=== PATIENT | male | born 1975 | race Caucasian/White ===

== ENCOUNTER 2017-12-14 08:39 | Emergency (ER) | payer BC ==
[~2017-12-14] VITALS: Ht 167.6 cm; Wt 74.8 kg
[~2017-12-14 08:39] MED LIST: AMOX500C2 PO; ASPI-999 PO; METO-451 PO
--- OUTSIDE RECORDS SUMMARY | 2017-12-14 08:44 | XMS REPORT | Continuity of Care Document ---
Author Author [facility] Organization [facility] Address Unknown Phone Unavailable Allergies Active Description Code Type Severity Reaction Onset Reported/Identified Relationship to Patient Clinical Status Yes No Known Drug Allergies [id number] Drug Allergy Unknown N/A 10/03/2015 Medications There is no data. Problems Date Dx Coded Attending Type Code Diagnosis Diagnosed By 10/04/2015 ILIA ARMIJO DO Ot I71.4 ABDOMINAL AORTIC ANEURYSM, WITHOUT RUPTU 10/15/2015 ELAN ARGUETA, ROMERO Hutchinson Ot D72.829 10/15/2015 ELAN ARGUETA, ROMERO A Ot I71.4 10/15/2015 ELAN ARGUETA, ROMERO A Ot D72.829 10/15/2015 ELAN ARGUETA, ROMERO A Ot I71.4 10/16/2015 ELAN ARGUETA, ROMERO A Ot D72.829 10/16/2015 ELAN ARGUETA, ROMERO A Ot I71.4 10/16/2015 ELAN ARGUETA, ROMERO A Ot D72.829 10/16/2015 ELAN ARGUETA, ROMERO A Ot I71.4 10/17/2015 ELAN ARGUETA, ROMERO A Ot D72.829 10/17/2015 ELAN ARGUETA, ROMERO A Ot I71.4 10/18/2015 ELAN ARGUETA, ROMERO A Ot D72.829 10/18/2015 ELAN ARGUETA, ROMERO A Ot I71.4 10/18/2015 ELAN ARGUETA, ROMERO A Ot D72.829 10/18/2015 ELAN ARGUETA, ROMERO A Ot I71.4 10/19/2015 ELAN ARGUETA, ROMERO A Ot D72.829 10/19/2015 ELAN ARGUETA, ROMERO A Ot I71.4 10/19/2015 ELAN ARGUETA, ROMERO A Ot D72.829 10/19/2015 ELAN ARGUETA, ROMERO A Ot I71.4 10/20/2015 ELAN ARGUETA, ROMERO A Ot D72.829 10/20/2015 ELAN ARGUETA, ROMERO A Ot I71.4 10/21/2015 ELAN ARGUETA, ROMERO A Ot D72.829 10/21/2015 ELAN ARGUETA, ROMERO A Ot I71.4 10/22/2015 ELAN ARGUETA, ROMERO A Ot D72.829 10/22/2015 ELAN ARGUETA, ROMERO A Ot I71.4 10/23/2015 ELAN AGRUETA, ROMERO A Ot D72.829 10/23/2015 ELAN ARGUETA, ROMERO A Ot I71.4 10/23/2015 ELAN ARGUETA, ROMERO A Ot D72.829 10/23/2015 ELAN ARGUETA, ROMERO A Ot I71.4 10/24/2015 ELAN ARGUETA, ROMERO A Ot D72.829 10/24/2015 ELAN ARGUETA, ROMERO A Ot I71.4 10/25/2015 ELAN ARGUETA, ROMERO A Ot D72.829 10/25/2015 ELAN ARGUETA, ROMERO A Ot I71.4 10/25/2015 ELAN ARGUETA, ROMERO A Ot D72.829 10/25/2015 ELAN ARGUETA, ROMERO A Ot I71.4 10/26/2015 ELAN ARGUETA, ROMERO A Ot D72.829 10/26/2015 ELAN ARGUETA, ROMERO A Ot I71.4 10/26/2015 ELAN ARGUETA, ROMERO A Ot D72.829 10/26/2015 ELAN ARGUETA, ROMERO A Ot I71.4 10/27/2015 ELAN ARGUETA, ROMERO A Ot D72.829 10/27/2015 ELAN ARGUETA, ROMERO A Ot I71.4 10/27/2015 ELAN ARGUETA, ROMERO A Ot D72.829 10/27/2015 ELAN ARGUETA, ROMERO A Ot I71.4 10/28/2015 ELAN ARGUETA, ROMERO A Ot D72.829 10/28/2015 ELAN ARGUETA, ROMERO A Ot I71.4 10/29/2015 ELAN ARGUETA, ROMERO A Ot D72.829 10/29/2015 ELAN ARGUETA, ROMERO A Ot I71.4 10/29/2015 ELAN ARGUETA, ROMERO A Ot D72.829 10/29/2015 ELAN ARGUETA, ROMERO A Ot I71.4 10/29/2015 ELAN ARGUETA, ROMERO A Ot D72.829 10/29/2015 ELAN ARGUETA, ROMERO A Ot I71.4 10/30/2015 ELAN ARGUETA, ROMERO A Ot D72.829 10/30/2015 ELAN ARGUETA, ROMERO A Ot I71.4 10/30/2015 ELAN ARGUETA, ROMERO A Ot D72.829 10/30/2015 ELAN ARGUETA, ROMERO A Ot I71.4 10/31/2015 ELAN ARGUETA, ROMERO A Ot D72.829 10/31/2015 ELAN ARGUETA, ROMERO A Ot I71.4 11/01/2015 ELAN ARGUETA, ROMERO A Ot D72.829 11/01/2015 ELAN ARGUETA, ROMERO A Ot I71.4 11/02/2015 ELAN ARGUETA, ROMERO A Ot D72.829 11/02/2015 ELAN ARGUETA, ROMERO A Ot I71.4 11/03/2015 ELAN ARGUETA, ROMERO A Ot D72.829 11/03/2015 ELAN ARGUETA, ROMERO A Ot I71.4 11/03/2015 ELAN ARGUETA, ROMERO A Ot D72.829 11/03/2015 ELAN ARGUETA, ROMERO A Ot I71.4 11/04/2015 ELAN ARGUETA, ROMERO A Ot D72.829 11/04/2015 ELAN ARGUETA, ROMERO A Ot I71.4 11/05/2015 ELAN ARGUETA, ROMERO A Ot D72.829 11/05/2015 ELAN ARGUETA, ROMERO A Ot I71.4 11/07/2015 ELAN ARGUETA, ROMERO A Ot D72.829 11/07/2015 ELAN ARGUETA, ROMERO A Ot I71.4 11/07/2015 ELAN ARGUETA, ROMERO A Ot D72.829 11/07/2015 ELAN ARGUETA, ROMERO A Ot I71.4 11/08/2015 ELAN ARGUETA, ROMERO A Ot D72.829 11/08/2015 ELAN ARGUETA, ROMERO A Ot I71.4 11/09/2015 ELAN ARGUETA, ROMERO A Ot D72.829 11/09/2015 ELAN ARGUETA, ROMERO A Ot I71.4 11/09/2015 ELAN ARGUETA, ROMERO A Ot D72.829 11/09/2015 ELAN ARGUETA, ROMERO A Ot I71.4 11/10/2015 ELAN ARGUETA, ROMERO A Ot D72.829 11/10/2015 ELAN ARGUETA, ROMERO A Ot I71.4 11/11/2015 ELAN ARGUETA, ROMERO A Ot D72.829 11/11/2015 ELAN ARGUETA, ROMERO A Ot I71.4 11/11/2015 ELAN ARGUETA, ROMERO A Ot D72.829 11/11/2015 ELAN ARGUETA, ROMERO A Ot I71.4 11/12/2015 ELAN ARGUETA, ROMERO A Ot D72.829 11/12/2015 ELAN ARGUETA, ROMERO A Ot I71.4 11/13/2015 ELAN ARGUETA, ROMERO A Ot D72.829 11/13/2015 ELAN ARGUETA, ROMERO A Ot I71.4 11/15/2015 ELAN ARGUETA, ROMERO A Ot D72.829 11/15/2015 ELAN ARGUETA, ROMERO A Ot I71.4 11/16/2015 ELAN ARGUETA, ROMERO A Ot D72.829 11/16/2015 ELAN ARGUETA, ROMERO A Ot I71.4 11/17/2015 ELAN ARGUETA, ROMERO A Ot D72.829 11/17/2015 ELAN ARGUETA, ROMERO A Ot I71.4 11/18/2015 ELAN ARGUETA, ROMERO A Ot D72.829 11/18/2015 ELAN ARGUETA, ROMERO A Ot I71.4 11/18/2015 ELAN ARGUETA, ROMERO A Ot D72.829 11/18/2015 ELAN ARGUETA, ROMERO A Ot I71.4 11/20/2015 ELAN ARGUETA, ROMERO A Ot D72.829 11/20/2015 ELAN ARGUETA, ROMERO A Ot I71.4 11/21/2015 ELAN ARGUETA, ROMERO A Ot D72.829 11/21/2015 ELAN ARGUETA, ROMERO A Ot I71.4 11/22/2015 ELAN ARGUETA, ROMERO A Ot D72.829 11/22/2015 ELAN ARGUETA, ROMERO A Ot I71.4 11/22/2015 ELAN ARGUETA, ROMERO A Ot D72.829 11/22/2015 ELAN ARGUETA, ROMERO A Ot I71.4 11/23/2015 ELAN ARGUETA, ROMERO A Ot D72.829 11/23/2015 ELAN ARGUETA, ROMERO A Ot I71.4 11/24/2015 ELAN ARGUETA, ROMERO A Ot D72.829 11/24/2015 ELAN ARGUETA, ROMERO A Ot I71.4 11/24/2015 ELAN ARGUETA, ROMERO A Ot D72.829 11/24/2015 ELAN ARGUETA, ROMERO A Ot I71.4 11/25/2015 ELAN ARGUETA, ROMERO A Ot D72.829 11/25/2015 ELAN ARGUETA, ROMERO A Ot I71.4 11/25/2015 ELAN ARGUETA, ROMERO A Ot D72.829 ELEVATED WHITE BLOOD CELL COUNT, UNSPECI 11/25/2015 ELAN ARGUETA, ROMERO A Ot I71.4 ABDOMINAL AORTIC ANEURYSM, WITHOUT RUPTU 01/04/2016 CORINNE AYON MD Ot F17.210 NICOTINE DEPENDENCE, CIGARETTES, UNCOMPL 01/04/2016 CORINNE AYON MD Ot R50.9 FEVER, UNSPECIFIED 01/04/2016 CORINNE AYON MD Ot Z98.89 OTHER SPECIFIED POSTPROCEDURAL STATES Procedures There is no data. Results There is no data. Encounters ACCT No. Visit Date/Time Discharge Status Pt. Type Provider Facility Loc./Unit Complaint [id number] 01/04/2016 09:34:00 01/04/2016 13:24:00 DIS Emergency CORINNE AYON MD [facility] ER FEVER [id number] 11/25/2015 08:10:00 11/25/2015 09:13:00 DIS Outpatient ROMERO ANSARI MD [facility] ANEURYSM OF INFRARENAL ABD AORTA,LEUKOCYTOSIS [id number] 10/03/2015 22:41:00 10/04/2015 04:13:00 DIS Emergency ILIA ARMIJO DO [facility] ER LOWER ABD/BACK PAIN
--- OUTSIDE RECORDS SUMMARY | 2017-12-14 08:44 | XMS REPORT ---
Author Author DESTIN THOMPSON [facility] Address [address] [place] [address] Care Team Providers Care Terrazzo Worker Name Role Phone DESTIN THOMPSON Unavailable PROBLEMS Type Condition ICD9-CM Code [id number] Code Onset Dates Condition Status SNOMED Code Problem Dysthymia F34.1 Active [id number] ALLERGIES No Information SOCIAL HISTORY Never Assessed PLAN OF CARE Activity Details Follow Up 2 Weeks Reason:Depression VITAL SIGNS MEDICATIONS Unknown Medications RESULTS No Results PROCEDURES Procedure Date Ordered Result Body Site Psychotherapy, patient &/family, 30 minutes, established patient Dec 09, 2016 IMMUNIZATIONS No Known Immunizations
--- OUTSIDE RECORDS SUMMARY | 2017-12-14 08:44 | XMS REPORT | Clinical Summary ---
Author Author [facility] Organization [facility] Address Unknown Phone Unavailable Care Team Providers Care It Network Engineer Name Role Phone Bernadette Jackson MD PCP Roe Valdivia MD Unavailable Sarah Schmid DO Unavailable Garrett Horn MD Unavailable Clyde Parr MD Unavailable Source Comments Some departments are not documenting in the electronic medical record. If you do not see the information that you expected, contact Release of Information in the Health Information Management department at [phone] for further assistance in locating additional records.[facility] Allergies No Known Allergies Current Medications Prescription Sig. Disp. Refills Start End Date Status Date aspirin EC 81 mg tablet Take 1 Tab by mouth 90 Tab 3 10/14/20 Active daily. 15 metoprolol (LOPRESSOR) 25 Take 25 mg by mouth Active mg tablet daily. 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 12/21/2015 Leukocytosis 10/05/2015 Aneurysm of infrarenal abdominal aorta (HCC) 10/04/2015 Social History Tobacco Use Types Packs/Day Years Used Date Current Every Day Smoker Cigarettes 0.25 Smokeless Tobacco: Never Used Tobacco Cessation: Ready to Quit: No; Counseling Given: Yes Alcohol Use Drinks/Week oz/Week Comments Yes 0 Standard 0.0 rare drinks or equivalent Sex Assigned at Date Recorded Not on file Last Filed Vital Signs Vital Sign Reading Time Taken Blood Pressure 127/82 10/13/2016 10:58 AM BENEFITS COORDINATOR Pulse 75 10/13/2016 10:58 AM BENEFITS COORDINATOR Temperature 36.8 C (98.3 F) 10/13/2016 10:58 AM BENEFITS COORDINATOR Respiratory Rate 14 10/13/2016 10:58 AM BENEFITS COORDINATOR Oxygen Saturation 100% 03/22/2016 4:11 PM CDT Inhaled Oxygen - - Concentration Weight 72.8 kg (160 lb 6.4 oz) 10/13/2016 10:58 AM BENEFITS COORDINATOR Height 167.6 cm (5' 6") 10/13/2016 10:58 AM BENEFITS COORDINATOR Body Mass Index 25.89 10/13/2016 10:58 AM BENEFITS COORDINATOR Plan of Treatment Health Maintenance Due Date Last Done Comments PHYSICAL (COMPREHENSIVE) 01/09/1983 EXAM PERTUSSIS VACCINE 01/09/1987 TETANUS VACCINE 01/09/1993 INFLUENZA VACCINE 05/17/2017 Results Not on filefrom Last 3 Months
[2017-12-14] MEDS ORDERED: HYDROcodone/APAP 5 MG/325 MG (LORTAB) TAB PO STA (09:40)
[2017-12-14] MEDS ORDERED: DEXAMETHASONE 10 MG/ML (DECADRON) 1 ML VIAL IM ONE (09:45)
--- NOTE | 2017-12-14 10:09 | ED EENT ---
History of Present Illness General Chief Complaint: Nasal Problems Stated Complaint: POSS ALLERGIC REACTION Nursing Triage Note: PT CO OF GARCIA, NASAL STUFFINESS, STATES USED AFRIN NASAL SPRAY AND SX HAD GOTTEN ALOT WORSE AFTER USING NASAL SPRAY. PT HAS GARCIA STATES SINUS ARE FULL HAS HX OF HEART SURG AND IS TAKING AMOXICILLIN PROPHYLACTICLY. Source: patient Exam Limitations: no limitations History of Present Illness Date Seen by Provider: Dec 14, 2017 Time Seen by Provider: 09:30 Initial Comments Here with complaint of nasal congestion for the last 3 days. He tried Afrin nasal spray this morning and had significant increase in pain and headache. Still very fall on the sinuses. Does have history of aortic dissection and has open prescription for amoxicillin for whenever he has problems. He has taken that over the last 24 hours. 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 Denies nausea, vomiting or breathing problems. Does have a sore throat and moderate runny nose with sinus pressure and congestion. Denies fevers currently. Timing/Duration: gradual Severity: moderate Location: nose, throat, facial Prearrival Treatment: over the counter meds Associated Symptoms: No cough, facial pain/swelling, No fever, nasal congestion /drainage, sinus infection, sore throat Allergies and Home Medications Allergies Coded Allergies: No Known Drug Allergies (Unverified , 10/03/15) Home Medications Metoprolol Tartrate 50 Mg Tablet, 25 MG PO BID, (Reported) Review of Systems Constitutional: see HPI, No chills, No fever Eyes: No Symptoms Reported Ears: No Symptoms Reported Nose: see HPI Mouth: no symptoms reported Throat: see HPI Respiratory: No cough, No short of breath Cardiovascular: no symptoms reported Gastrointestinal: no symptoms reported, No abdominal pain, No nausea, No vomiting Musculoskeletal: no symptoms reported Past Taqswqg-Ywkmnw-Eahagx Hx Patient Social History Alcohol Use: Denies Use Recreational Drug Use: No Smoking Status: Current Everyday Smoker Type Used: Cigarettes Recent Foreign Travel: No Contact w/Someone Who Travel: No Recent Infectious Disease Expo: No Recent Hopitalizations: No Physical Abuse: No Sexual Abuse: No Immunizations Up To Date Tetanus Booster (TDap): Unknown Surgeries History of Surgeries: No (PART OF AORTA REMOVED DUE TO INFECTION. ) Surgeries: Abdominal Respiratory History of Respiratory Disorde: No Cardiovascular History of Cardiac Disorders: No Neurological History of Neurological Disord: No Reproductive System Hx Reproductive Disorders: No Sexually Transmitted Disease: No HIV/AIDS: No Gastrointestinal History of Gastrointestinal Di: No Musculoskeletal History of Musculoskeletal Dis: No Endocrine History of Endocrine Disorders: No Cancer History of Cancer: No Psychosocial History of Psychiatric Problem: No Suicide Risk Score: 0 Integumentary History of Skin or Integumenta: No Blood Transfusions History of Blood Disorders: No Adverse Reaction to a Blood Tr: No Reviewed Nursing Assessment Reviewed/Agree w Nursing PMH: Yes Family Medical History Significant Family History: No Pertinent Family Hx Physical Exam Vital Signs Vital Signs - First Documented 12/14/17 08:50 Temp 97.8 Pulse 90 Resp 18 B/P (MAP) 164/134 (144) Pulse Ox 99 General Appearance: WD/WN, no apparent distress Eyes: bilateral eye normal inspection, bilateral eye PERRL, bilateral eye EOMI Ears: bilateral ear auricle normal, bilateral ear canal normal, bilateral ear TM normal Nose: other (moderate congestion with moderate erythema and clear rhinorrhea) Mouth/Throat: pharynx swelling, pharynx tenderness, other (moderate pharyngeal erythema) Neck: full range of motion, supple Cardiovascular: regular rate, rhythm, no murmur Respiratory: lungs clear, normal breath sounds Gastrointestinal: non tender, soft Neurologic/Psychiatric: alert, oriented x 3 Skin: warm/dry, other (somewhat red and puffy on the face with pressure/ fullness feeling with palpation.) Progress/Results/Core Measures Results/Orders My Orders Orders - MAYTE JORDAN MD Hydrocodone/Apap 5/325 Tablet (Lortab 5 (12/14/17 09:40) Dexamethasone Injection (Decadron Inject (12/14/17 09:45) Medications Given in ED Current Medications Medications Dose Ordered Sig/Rashel Route Start Time Stop Time Status Last Admin Dose Admin Dexamethasone Sodium Phosphate 10 mg ONCE ONCE IM 12/14/17 09:45 12/14/17 09:46 DC 12/14/17 09:51 10 MG Vital Signs/I&O Vital Sign - Last 12Hours 12/14/17 08:50 Temp 97.8 Pulse 90 Resp 18 B/P (MAP) 164/134 (144) Pulse Ox 99 Blood Pressure Mean: 144 Progress Note : Progress Note Seen and evaluated. Decadron 10 mg IM. Hydrocodone 5/325 2 tabs by mouth given. We will increase her antibiotic outpatient to Augmentin twice a day given concerns for sinus infection. Discharged home with return precautions. Patient and family verbalize understanding instructions and agreement with plan. Departure Impression Impression: Primary Impression: Sinusitis Qualified Codes: J01.10 - Acute frontal sinusitis, unspecified Disposition: HOME, SELF-CARE Condition: Stable Departure-Patient Inst. Decision time for Depature: 10:08 Referrals: ROMERO ANSARI MD (PCP/Family) Primary Care Physician Patient Instructions: Headache, Adult (DC), Sinusitis, Adult (DC) Add. Discharge Instructions: All discharge instructions reviewed with patient and/or family. Voiced understanding. Take medications as directed. You may take Tylenol 1000 mg every 6 hours as needed for pain. You may use the nasal irrigation. You may also use the nasal saline with menthol (four-way brand for similar) as needed. Follow-up with your Dr. in a few days for recheck. Return for worse pain, fever, vomiting, weakness, breathing problems or other concerns as needed. Scripts Amoxicillin/Potassium Clav (Augmentin 875-125 Tablet) 1 Each Tablet 1 EACH PO BID, #20 TAB 0 Refills Prov: MAYTE JORDAN MD 12/14/17 MAYTE JORDAN MD Dec 14, 2017 10:09
[2017-12-14 10:10] VITALS: BP 186/112
[2017-12-14] MEDS ORDERED: AMOX-358 PO (10:10)
== END 2017-12-14 10:17 | disposition home or self-care (01) ==
LOC: EDUNIT# 08:39 → ER 08:40
DX: J32.9 Chronic sinusitis, unspecified (principal); F17.210 Nicotine dependence, cigarettes, uncomplicated; Z98.890 Other specified postprocedural states
CPT/HCPCS: 96372; 99284

== ENCOUNTER → 2019-09-07 | Outpatient (CLI) | payer BC ==
[~2019-09-07] MED LIST changes: +AMOX-358 PO
--- NOTE | 2019-09-07 12:46 | Diagnostic Imaging Report ---
INDICATION: Fall with left shoulder injury. TIME OF EXAM: 11:36 AM 3 views left shoulder were obtained. Glenohumeral and acromioclavicular alignment are normal. Acromiohumeral space is normal. No fracture or dislocation is seen. IMPRESSION: No acute bony abnormality is detected. Dictated by: Dictated on workstation # [id number]
== END ==
LOC: RAD 11:07
PROVIDERS: ATTEND Nurse Practitioner Family
DX: S49.92XA Unspecified injury of left shoulder and upper arm, initial encounter (principal); W19.XXXA Unspecified fall, initial encounter
CPT/HCPCS: 73030

== ENCOUNTER → 2019-09-21 | Outpatient (CLI) | payer BC ==
--- NOTE | 2019-09-21 11:06 | Diagnostic Imaging Report ---
EXAMINATION: MRI of the left upper extremity without contrast, 09/21/2019. TECHNIQUE: Multiplanar, multisequence non contrast-enhanced MRI of the left upper extremity was accomplished. INDICATION: Fell on a slip and slide. Injury to the shoulder, continued pain. FINDINGS: The subscapularis tendon is intact. The long head of the biceps tendon is intact as well and lies within the bicipital groove. The infraspinatus tendon is intact. The supraspinatus tendon contains linear T2 hyperintensity at the footprint consistent with a partial-thickness intrasubstance tear. No full-thickness tear or retraction is appreciated. There is minimal fluid in the subdeltoid-subacromial bursa. The visualized axilla is unremarkable. The muscle volume is preserved. The osseous structures demonstrate no acute abnormalities. Minimal spurring noted at the acromioclavicular joint. The labrum is not well evaluated without contrast. No gross abnormality appreciated. IMPRESSION: 1. Fairly extensive but predominantly intrasubstance tear involving the supraspinatus tendon at the footprint. Infraspinatus and subscapularis tendons intact. 2. Remaining visualized structures also intact. Dictated by: Dictated on workstation # [id number]
== END ==
LOC: RAD 09:53
PROVIDERS: ATTEND Nurse Practitioner Family
DX: M75.102 Unspecified rotator cuff tear or rupture of left shoulder, not specified as traumatic (principal)
CPT/HCPCS: 73221

== ENCOUNTER 2021-04-19 14:34 | Emergency (ER) | payer BC ==
[~2021-04-19] VITALS: Ht 167 cm; Wt 72.5 kg
[2021-04-19] MEDS ORDERED: NS IV 1000 ML 1,000 ML IV SCH (15:00)
[2021-04-19] MEDS ORDERED: HOLD METFORMIN - RECEIVED CONTRAST 20 ML VIAL IV SCH ×2 (15:15)
[2021-04-19] MEDS ORDERED: IOHEXOL 350 MG/ML 100 ML (OMNIPAQUE 350) VIAL IV ONE ×2 (15:15)
[2021-04-19] MEDS ORDERED: NS 100 ML (IVPB) BAG IV ONE ×2 (15:15)
[2021-04-19 15:17] LABS: BASOPHILS % (AUTO) 0 % (0-10); EOSINOPHILS % (AUTO) 0 % (0-10); HEMATOCRIT 45 % (40-54); HEMOGLOBIN 15.3 g/dL (13.3-17.7); LYMPHOCYTES # (AUTO) 1.7 X 10^3 (1.0-4.0); LYMPHOCYTES % (AUTO) 13 % (12-44); MEAN CORPUSCULAR HEMOGLOBIN 33 pg (25-34); MEAN CORPUSCULAR HGB CONC 34 g/dL (32-36); MEAN CORPUSCULAR VOLUME 95 fL (80-99); MEAN PLATELET VOLUME 8.5 fL (9.0-12.2); MONOCYTES % (AUTO) 8 % (0-12); NEUTROPHILS # (AUTO) 9.8 X 10^3 (1.8-7.8); NEUTROPHILS % (AUTO) 78 % (42-75); PLATELET COUNT 274 10^3/uL (130-400); WHITE BLOOD COUNT 12.6 10^3/uL (4.3-11.0)
[2021-04-19 15:25] LABS: CHLORIDE 106 MMOL/L (98-107); POTASSIUM 4.2 MMOL/L (3.6-5.0); SODIUM 141 MMOL/L (135-145)
[2021-04-19 15:26] LABS: CALCIUM 9.4 MG/DL (8.5-10.1)
[2021-04-19 15:27] LABS: GLUCOSE 106 MG/DL (70-105); INR 0.9 (0.8-1.4); PROTHROMBIN TIME PATIENT 12.3 SEC (12.2-14.7); TOTAL PROTEIN 7.5 GM/DL (6.4-8.2)
[2021-04-19 15:28] LABS: CARBON DIOXIDE 21 MMOL/L (21-32)
[2021-04-19 15:29] LABS: BILIRUBIN,TOTAL 0.8 MG/DL (0.1-1.0)
[2021-04-19 15:31] LABS: ALKALINE PHOSPHATASE 74 U/L (40-136); CREATININE SERUM 0.77 MG/DL (0.60-1.30); GFR ESTIMATED > 60
[2021-04-19 15:32] LABS: BUN/CREATININE RATIO 9
[2021-04-19 15:33] LABS: MAGNESIUM 2.2 MG/DL (1.6-2.4)
[2021-04-19 15:34] LABS: ALANINE AMINOTRANSFERASE 35 U/L (0-55)
--- NOTE | 2021-04-19 15:39 | ED Cardiac General ---
History of Present Illness General Chief Complaint: Lower Extremity Stated Complaint: R LEG NUMBNESS/L LEG CRAMPS Nursing Triage Note: PT PRESENTS TO ED VIA POV FROM HOME WITH COMPLAINTS OF L LEG CRAMPING/TIGHTNESS SINCE TUESDAY AND R LEG NUMBNESS. Source: patient Exam Limitations: no limitations History of Present Illness Date Seen by Provider: Apr 19, 2021 Time Seen by Provider: 14:45 Initial Comments This 46-year-old gentleman presents to the emergency room with pain and numbness in the bilateral legs that woke him from sleep yesterday. He appears to have poor circulation in both feet with significantly delayed capillary refill. Skin of the feet is pale and cool to the touch. Pedal pulses cannot be palpated but they can be detected with Doppler except for the left dorsal pedal pulse. The left posterior pedal pulses detectable with Doppler. 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 Need AAA was repaired with graft. He is not anticoagulated. He had quit smoking but recently started smoking again about a month ago. He is ambulatory. His thighs are sore. 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 Allergies and Home Medications Allergies Coded Allergies: No Known Drug Allergies (Unverified , 10/03/15) Home Medications Amoxicillin/Potassium Clav 1 Each Tablet, 1 EACH PO BID Prescribed by: MAYTE JORDAN on 12/14/17 1010 Metoprolol Tartrate 50 Mg Tablet, 25 MG PO BID, (Reported) Patient Home Medication List Home Medication List Reviewed: Yes Review of Systems Review of Systems Constitutional: no symptoms reported EENTM: No Symptoms Reported Respiratory: No Symptoms Reported Cardiovascular: See HPI Gastrointestinal: No Symptoms Reported Genitourinary: No Symptoms Reported Musculoskeletal: see HPI Skin: no symptoms reported Psychiatric/Neurological: No Symptoms Reported Endocrine: No Symptoms Reported Hematologic/Lymphatic: No Symptoms Reported Past Gvcxdlk-Kyptdo-Fxigpk Hx Patient Social History Tobacco Use?: Yes Tobacco type used: Cigarettes Smoking Status: Current Everyday Smoker Substance use?: Yes Substance type: Marijuana Substance frequency: Couple times a week Alcohol Use?: Yes Alcohol type: Beer Alcohol Frequency: Daily Pt feels they are or have been: No Immunizations Up To Date Tetanus Booster (TDap): Unknown Past Medical History Surgeries: Yes (AAA repair with graft) Abdominal Respiratory: No Cardiac: Yes Peripheral Vascular (AAA associated with strep infection) Neurological: No Reproductive Disorders: No Sexually Transmitted Disease: No HIV/AIDS: No Gastrointestinal: No Musculoskeletal: No Endocrine: No HEENT: No Cancer: No Psychosocial: No Integumentary: No Blood Disorders: No Adverse Reaction/Blood Tranf: No Family Medical History No Pertinent Family Hx Physical Exam Vital Signs Vital Signs - First Documented 04/19/21 14:51 Temp 36.1 Pulse 96 Resp 18 B/P (MAP) 140/90 (107) Pulse Ox 97 Capillary Refill : Less Than 3 Seconds Height, Weight, BMI Height: 5'6.00" Weight: 165lbs. 14.6oz. 74.106643gx; 25.00 BMI Method:Stated General Appearance: No Apparent Distress, WD/WN HEENT: Normal ENT Inspection Neck: Normal Inspection Respiratory: Lungs Clear, Normal Breath Sounds, No Accessory Muscle Use Cardiovascular: Regular Rate, Rhythm, No Edema, No Murmur, Other (No pedal pulses palpable in the bilateral feet. Posterior and dorsal pedal pulses detectable by Doppler on the right. Posterior pedal pulse detectable by Doppler on the left) Gastrointestinal: Normal Bowel Sounds, No Pulsatile Mass, Non Tender, Soft Extremity: Other (Pale cool feet bilaterally with sluggish capillary refill greater than 10 seconds. Sensation and movement intact. Thigh muscles tender to palpation) Neurologic/Psychiatric: Alert, Oriented x3, No Motor/Sensory Deficits, Normal Mood/Affect, medical imaging technician II-XII Norm as Tested Skin: Cool, Pallor Progress/Results/Core Measures Results/Orders Lab Results Laboratory Tests Test 04/19/21 15:05 Range/Units White Blood Count 12.6 H 4.3-11.0 10^3/uL Red Blood Count 4.71 4.30-5.52 10^6/uL Hemoglobin 15.3 13.3-17.7 g/dL Hematocrit 45 40-54 % Mean Corpuscular Volume 95 80-99 fL Mean Corpuscular Hemoglobin 33 25-34 pg Mean Corpuscular Hemoglobin Concent 34 32-36 g/dL Red Cell Distribution Width 12.7 10.0-14.5 % Platelet Count 274 130-400 10^3/uL Mean Platelet Volume 8.5 L 9.0-12.2 fL Immature Granulocyte % (Auto) 0 % Neutrophils (%) (Auto) 78 H 42-75 % Lymphocytes (%) (Auto) 13 12-44 % Monocytes (%) (Auto) 8 0-12 % Eosinophils (%) (Auto) 0 0-10 % Basophils (%) (Auto) 0 0-10 % Neutrophils # (Auto) 9.8 H 1.8-7.8 X 10^3 Lymphocytes # (Auto) 1.7 1.0-4.0 X 10^3 Monocytes # (Auto) 1.0 0.0-1.0 X 10^3 Eosinophils # (Auto) 0.0 0.0-0.3 10^3/uL Basophils # (Auto) 0.0 0.0-0.1 10^3/uL Immature Granulocyte # (Auto) 0.0 0.0-0.1 10^3/uL Prothrombin Time 12.3 12.2-14.7 SEC INR Comment 0.9 0.8-1.4 Activated Partial Thromboplast Time 27 24-35 SEC Sodium Level 141 135-145 MMOL/L Potassium Level 4.2 3.6-5.0 MMOL/L Chloride Level 106 98-107 MMOL/L Carbon Dioxide Level 21 21-32 MMOL/L Anion Gap 14 5-14 MMOL/L Blood Urea Nitrogen 7 7-18 MG/DL Creatinine 0.77 0.60-1.30 MG/DL Estimat Glomerular Filtration Rate > 60 BUN/Creatinine Ratio 9 Glucose Level 106 H 70-105 MG/DL Calcium Level 9.4 8.5-10.1 MG/DL Corrected Calcium 9.4 8.5-10.1 MG/DL Magnesium Level 2.2 1.6-2.4 MG/DL Total Bilirubin 0.8 0.1-1.0 MG/DL Aspartate Amino Transf (AST/SGOT) 120 H 5-34 U/L Alanine Aminotransferase (ALT/SGPT) 35 0-55 U/L Alkaline Phosphatase 74 40-136 U/L Total Creatine Kinase 6823 H 30-200 U/L Total Protein 7.5 6.4-8.2 GM/DL Albumin 4.0 3.2-4.5 GM/DL My Orders Orders - NEO JIMENES MD Ct Angio Abdomen/Pelv W (04/19/21 14:54) Cbc With Automated Diff (04/19/21 14:54) Comprehensive Metabolic Panel (04/19/21 14:54) Creatine Kinase (04/19/21 14:54) Magnesium (04/19/21 14:54) Protime With Inr (04/19/21 14:54) Partial Thromboplastin Time (04/19/21 14:54) Ed Iv/Invasive Line Start (04/19/21 14:54) Ns Iv 1000 Ml (Sodium Chloride 0.9%) (04/19/21 15:00) Iohexol Injection (Omnipaque 350 Mg/Ml 1 (04/19/21 15:15) Received Contrast (Hold Metformin- Contr (04/19/21 15:15) Ns (Ivpb) (Sodium Chloride 0.9% Ivpb Bag (04/19/21 15:15) Iohexol Injection (Omnipaque 350 Mg/Ml 1 (04/19/21 15:15) Received Contrast (Hold Metformin- Contr (04/19/21 15:15) Ns (Ivpb) (Sodium Chloride 0.9% Ivpb Bag (04/19/21 15:15) Heparin Drip 11601 Unit/500ml (Heparin (04/19/21 15:45) Heparin (Bolus Per Protocol) (Heparin (B (04/19/21 15:45) Medications Given in ED Current Medications Medications Dose Ordered Sig/Rashel Route Start Time Stop Time Status Last Admin Dose Admin Heparin Sodium (Porcine) HEPARIN FULL PROTOC... ONCE ONCE IV 04/19/21 15:45 04/19/21 15:46 DC 04/19/21 16:06 5,000 UNIT Heparin Sodium/ Dextrose 500 ml @ 0 mls/hr Q0M ONCE IV 04/19/21 15:45 04/19/21 15:46 DC 04/19/21 16:07 24 MLS/HR Iohexol 100 ml ONCE ONCE IV 04/19/21 15:15 04/19/21 15:16 DC 04/19/21 15:16 85 ML Sodium Chloride 100 ml ONCE ONCE IV 04/19/21 15:15 04/19/21 15:16 DC 04/19/21 15:17 80 ML Vital Signs/I&O 04/19/21 04/19/21 14:51 17:44 Temp 36.1 Pulse 96 79 Resp 18 18 B/P (MAP) 140/90 (107) 150/100 Pulse Ox 97 98 Blood Pressure Mean: 107 Progress Progress Note : Time: 16:56 Progress Note Based on history and exam occlusion of his aortic graft was suspected. CT angiogram of the abdomen and pelvis with runoff into the thighs was obtained. Unfortunately this did show occlusion starting just below the renal arteries and extending into the iliacs. Collateral flow picked up after the iliac bifurcation demonstrating perfusion into both upper legs. [facility] was contacted at 15:25. Case was reviewed and upon callback they recommended transfer by ground after starting heparin drip. Because there is collateral flow, he can be treated with scheduled procedure after medical clearance. He does not require critical emergent surgery. Heparin bolus and drip were initiated in the ER. He was also found to have a significant elevation in creatinine kinase of greater than 6800. [facility] was updated with this CK value. V fluids were initiated. He did not require any pain medications. Diagnostic Imaging Diagonstic Imaging: CT Plain Films/CT/US/NM/MRI: abdomen, pelvis Comments CT angiogram abdomen and pelvis viewed by me. Discussed with the radiologist and report reviewed. See report below: NAME: SHREYASABADES RAGSDALE [facility] REC#: [id number] PT STATUS: REG ER : 1975 PHYSICIAN: NEO JIMENES MD ADMIT DATE: 04/19/21/ER Draft Date of Exam:04/19/21 CT ANGIO ABDOMEN/PELV W PROCEDURE: CT angio abdomen/pelvis with. TECHNIQUE: Multiple contiguous axial images were obtained through the abdomen and pelvis after the uneventful bolus administration of intravenous contrast. Sagittal and coronal MIP reconstructions with then performed. All CT scans use one or more of the following dose optimizing techniques: automated exposure control, MA and/or KvP adjustment based on patient size and exam type or iterative reconstruction. INDICATION: Left leg cramping, tightness since yesterday with right leg numbness. History of previous abdominal aortic repair. CORRELATION STUDY: 10/04/2015. FINDINGS: The visualized descending thoracic aorta into the proximal abdominal aorta is of normal caliber and patent. There is at least moderate narrowing at the origin of the celiac trunk. Superior mesenteric artery patent. There appear to be at least three renal artery branches which are patent. Immediately distal to the takeoff of the renal arteries, there is abrupt termination of contrast flow with filling defects through the entirety of the abdominal aorta through the common iliac arteries. There is some contrast filling of the hypogastric arteries and likely reflux into the external iliac arteries appear to be likely largely attributed to some small-caliber lumbar branches. There is contrast filling of the visualized common femoral arteries into the proximal superficial femoral arteries and profunda femoral arteries. Remainder of examination demonstrates the lung bases to be clear. Heart size is normal. Liver, gallbladder, spleen, pancreas and adrenal glands demonstrate no acute abnormality. The kidneys are of relatively normal size with normal enhancement. The gastrointestinal tract demonstrates question of some areas of slight thickening of small bowel and colon. No definitive pneumatosis. No portal venous gas. No abdominal ascites and/or free air. Urinary bladder unremarkable. Prostate gland unremarkable. IMPRESSION: 1. 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 There appears to be filling of the hypogastric and external iliac arteries likely via very small lumbar collateral branches. 2. Question of wall thickening in some segments of small bowel and colon particularly transverse colon. While this may be owing to underdistention or underlying enteritis, possibly of early ischemic changes not completely excluded. However, the supra mesenteric artery appears to be well opacified. There does appear to be narrowing at the origin of the celiac trunk. Inferior mesenteric artery is not visualized and likely with absence of vascular flow. Critical findings Telephone call made to the Emergency Department, 3:30 PM. Dictated on workstation # [id number] Dict: 04/19/21 1523 Trans: 04/19/21 1550 [facility] [id number] Interpreted by: BETTY BERRY DO Departure Impression Primary Impression: Thrombosis of abdominal aorta Additional Impression: Elevated creatine kinase Disposition: [facility] Condition: Stable Transfer Transfer Reason: Exceeds level of care Time Spoke to Accepting Phy: 15:25 Transfer Progress Notes Transfer accepted by Dr. Hanley at [facility]. Transfer Time: 17:44 Transfer Facility: [facility] Method of Transfer: EMS Departure-Patient Inst. Referrals: ROMERO ANSARI MD (PCP/Family) Primary Care Physician Copy Copies To 1: ROMERO ANSARI MD, JOSHUA T MD Apr 19, 2021 15:39
[2021-04-19 15:45] LABS: CREATINE KINASE 6823 U/L (30-200)
[2021-04-19] MEDS ORDERED: HEParin DRIP 25000 UNIT/500ML 500 ML IV ONE (15:45)
[2021-04-19] MEDS ORDERED: HEParin 1000 UNIT/ML (10ML VIAL) FOR BOLUS IV ONE (15:45)
--- NOTE | 2021-04-19 15:52 | Diagnostic Imaging Report ---
PROCEDURE: CT angio abdomen/pelvis with. TECHNIQUE: Multiple contiguous axial images were obtained through the abdomen and pelvis after the uneventful bolus administration of intravenous contrast. Sagittal and coronal MIP reconstructions with then performed. All CT scans use one or more of the following dose optimizing techniques: automated exposure control, MA and/or KvP adjustment based on patient size and exam type or iterative reconstruction. INDICATION: Left leg cramping, tightness since yesterday with right leg numbness. History of previous abdominal aortic repair. CORRELATION STUDY: 10/04/2015. FINDINGS: The visualized descending thoracic aorta into the proximal abdominal aorta is of normal caliber and patent. There is at least moderate narrowing at the origin of the celiac trunk. Superior mesenteric artery patent. There appear to be at least three renal artery branches which are patent. Immediately distal to the takeoff of the renal arteries, there is abrupt termination of contrast flow with filling defects through the entirety of the abdominal aorta through the common iliac arteries. There is some contrast filling of the hypogastric arteries and likely reflux into the external iliac arteries appear to be likely largely attributed to some small-caliber lumbar branches. There is contrast filling of the visualized common femoral arteries into the proximal superficial femoral arteries and profunda femoral arteries. Remainder of examination demonstrates the lung bases to be clear. Heart size is normal. Liver, gallbladder, spleen, pancreas and adrenal glands demonstrate no acute abnormality. The kidneys are of relatively normal size with normal enhancement. The gastrointestinal tract demonstrates question of some areas of slight thickening of small bowel and colon. No definitive pneumatosis. No portal venous gas. No abdominal ascites and/or free air. Urinary bladder unremarkable. Prostate gland unremarkable. IMPRESSION: 1. 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 There appears to be filling of the hypogastric and external iliac arteries likely via very small lumbar collateral branches. 2. Question of wall thickening in some segments of small bowel and colon particularly transverse colon. While this may be owing to underdistention or underlying enteritis, possibly of early ischemic changes not completely excluded. However, the supra mesenteric artery appears to be well opacified. There does appear to be narrowing at the origin of the celiac trunk. Inferior mesenteric artery is not visualized and likely with absence of vascular flow. Critical findings Telephone call made to the Emergency Department, 3:30 PM. Dictated by: Dictated on workstation # [id number]
[2021-04-19 17:44] VITALS: BP 150/100
== END 2021-04-19 17:44 | disposition short-term general hospital (02) ==
LOC: EDUNIT# 14:34 → ER 14:36
DX: I74.09 Other arterial embolism and thrombosis of abdominal aorta (principal); R79.89 Other specified abnormal findings of blood chemistry; F17.210 Nicotine dependence, cigarettes, uncomplicated
CPT/HCPCS: 36415; 74174; 80053; 82550; 83735; 85025; 85610; 85730